=== PATIENT | female | born 1950 | race Caucasian/White ===

== ENCOUNTER 2020-11-05 16:00 | Outpatient (REF) | payer OTHER, SELFPAY | END 2020-11-05 16:01 | disposition home or self-care (01) | LOC: HO.SCI 16:00 | DX: Z13.89 Encounter for screening for other disorder (principal) ==

== ENCOUNTER 2020-11-12 10:30 | Outpatient (REF) | payer OTHER, SELFPAY ==
--- NOTE | 2020-11-12 | MR_ITS ---
EXAMINATION: MR CERVICAL SPINE WITHOUT CONTRAST CLINICAL INFORMATION: Frequent falls. COMPARISON: None TECHNIQUE: MRI of the cervical spine was obtained using routine sequences without contrast. FINDINGS: VERTEBRAL BODIES AND PARASPINAL SOFT TISSUES: There are anterior subluxations at the C2-C3, C3-C4, and C7-T1 levels. Mild leftward curvature of the mid cervical spine noted. Chronic degenerative endplate changes present at multiple levels, most significant at C4-C5. The paraspinal soft tissues are unremarkable. The imaged portions of the lungs are clear. CERVICOMEDULLARY JUNCTION AND VISUALIZED POSTERIOR FOSSA: The craniovertebral junction and visualized portions of the brain parenchyma demonstrate no acute abnormality. No cord signal changes or syrinx is seen. SPINAL LEVELS: C2-C3: Anterior subluxation with gecg-hn-rzikzufo facet arthropathy. No focal disc protrusion, central canal stenosis, or foraminal narrowing. C3-C4: Anterolisthesis and unroofing of the disc with mild endplate spurring. No central canal stenosis. Mild foraminal encroachment due to osseous spurring. Llxktjlc-wu-tfnkhs left-sided facet degeneration. C4-C5: Mild retrosubluxation and severe loss of disc height with a broad-based disc-osteophyte complex. No central canal stenosis. Mild right foraminal encroachment. C5-C6: Mild loss of disc height and mild uncovertebral joint spurring with moderate right foraminal encroachment. No central canal stenosis. C6-C7: Ppagldjm-tj-gbogpx loss of disc height with a mild disc bulge and uncovertebral joint spurring. No central canal stenosis. Kpibedkb-hl-juquui foraminal encroachment, more so on the left side. C7-T1: Anterior subluxation and unroofing of the disc with csurfdjo-bn-ectjzx facet arthropathy and significant left foraminal encroachment. MR/MR cervical spine wo con IMPRESSION: Limited study with motion artifacts. Moderate multilevel cervical spondylosis with subluxations as described and facet degeneration. No cord signal abnormality or significant central canal stenosis.
== END 2020-11-12 10:31 | disposition home or self-care (01) ==
LOC: HO.MRI 10:30
PROVIDERS: PCP Internal Medicine; Visit Provider Psychiatry & Neurology Neurology
DX: G95.9 Disease of spinal cord, unspecified (principal)
CPT/HCPCS: 72141

== ENCOUNTER 2024-02-10 12:19 | Outpatient (AMB) | payer OTHER, SELFPAY ==
--- NOTE | 2024-02-10 12:23 | A.OFFVIS_ITS ---
Intake Vital Signs 02/10/24 12:27 Height 5 ft 4 in Weight 191 lb 4 oz BMI 32.8 BP 116/82 Blood Pressure Location Rt brachial Position Sitting Respiration 17 Pulse 71 Pulse Source Pulse Oximeter Pulse Oximetry (%) 95 Oxygen Delivery Method Room Air Intake Visit Reasons: ENP-Tremor upper extremity-CONF Intake Note: Pt presents for new pt evaluation for tremors for 1 year, mainly the right hand. Instrument Lens Generator Required: No Allergies No Known Allergies Allergy (Verified 02/10/24 12:24) Medication List - Last Reconciled 02/10/24 by Lilibeth Escobedo MD amlodipine 5 mg PO DAILY aspirin 81 mg PO DAILY multivitamin 1 tab PO DAILY omeprazole 20 mg PO DAILY paroxetine HCl 20 mg PO DAILY propranolol 20 mg PO BID simvastatin 20 mg PO DAILY HPI HPI Comments History of Present Illness Details 74y/o right handed female comes for eval uation of tremors and balance issues. The tremors started about 1 year ago and it has worsened since then It is more on her right than left.The tremors are mostly at rest.No triggering factors. she is not sure if her fine motor coordination is affected. Her speech is softer. She denies drooling. she has trouble writing and her handwriting is smaller.No difficulty using her utensils, showering,dressing but slower. she has trouble turning in bed.Her walking is slower and when she tries to walk - she feels like her body moves faster than her legs. she reports occasional urinary incontinence.No constipation, no dizziness, no hallucinations.No double vision. Memory- mild difficulty with names SLeep- has snoring NO RBD. she takes daytime naps Mood-stable and is motivated. He had a fall in the bathroom and hit her head. she has occasional neck and back pain [facility] Medical History (Updated 02/10/24 @ 12:57 by Lilibeth Escobedo MD) Neck pain Gait disturbance Coarse tremors Anxiety Depression Diverticulosis Hyperlipidemia Osteopenia Prediabetes Arthritis HTN (hypertension) Social History Household Members: Spouse Housing: House Alcohol intake: current Comment: daily- Jacqueline Patient Tobacco Use Status: Never used Tobacco Use of substances other than those prescribed or required for medical reasons: No Physical Exam Vital Signs: Last Vital Signs Pulse 71 02/10/24 12:27 Resp 17 02/10/24 12:27 BP 116/82 02/10/24 12:27 Pulse Ox 95 02/10/24 12:27 Oxygen Delivery Method Room Air 02/10/24 12:27 BMI result Body Mass Index 32.8 Const General: cooperative, healthy appearing and comfortable Nutritional Appearance: average body habitus Orientation/consciousness: oriented to time Eyes Pupils: Equal, round and reactive pupils present Neuro Other: Mild asymmetry of palpebral fissure - right smaller than left SPeech- normal Right hand intremittent rest tremors FFM decreased noa. Mild cog wheel rigidty R>L Foot taps - decreased noa Gait slow- decreased arms wings noa R>L General: oriented to time, moves all extremities and no focal motor deficits Cranial nerves: Yes Equal, round and reactive pupils present, Yes Bilaterally intact EOM present, Yes Normal facial strength present, Yes Midline tongue present and Yes Ability to bilaterally elevate shoulders present Cognition (Neuro): normal cognition Motor exam (neuro): 5/5 motor strength present throughout Deep tendon reflexes (DTR's): Right triceps reflex intensity grade: 1+, Left triceps reflex intensity grade: 1+, Rt Biceps (C5, C6): 1+, Left biceps reflex intensity grade: 1+, Right brachioradialis reflex intensity grade: 1+, Left brachioradialis reflex intensity grade: 1+, Right patellar reflex intensity grade: 3+ and Left patellar reflex intensity grade: 1+ Coordination: beiohy-iu-zrpw test normal Assessment & Plan Assessment & Plan (1) Coarse tremors: Comment: ? subtle extrapyramidal symptoms Code(s): G25.2 - Other specified forms of tremor (2) Gait disturbance: Comment: ? hypereflexia Right knee ? parkinsonism , ? cervical spondylosis Code(s): R26.9 - Unspecified abnormalities of gait and mobility Plan MRI Brain to evaluate PT for gait training X ray c spine Consider Len scan Change propranolol LA 60 mg qd Orders: Orders PT Evaluation and Treatment Today R26.9 - Unspecified abnormalities of gait and mobility MR head/brain wo con Today G25.2 - Other specified forms of tremor, R26.9 - Unspecified abnormalities of gait and mobility XR cervical spine 2V Today M54.2 - Cervicalgia Coding Level of Care Code New Pt Level 4 (65747) Diagnoses Coarse tremors G25.2 Gait disturbance R26.9
[2024-02-10 12:27] VITALS: BP 116/82; PULSE 71; RESP 17; O2SAT 95; BMI 32.8
== END 2024-02-10 13:04 | disposition home or self-care (01) ==
PROVIDERS: PCP Internal Medicine; Visit Provider Psychiatry & Neurology Neurology
DX: G25.2 Other specified forms of tremor (principal); R26.9 Unspecified abnormalities of gait and mobility
CPT/HCPCS: 99204

== ENCOUNTER → 2024-02-10 12:19 | Outpatient (BNVA) | payer OTHER, SELFPAY | PROVIDERS: PCP Internal Medicine; Visit Provider Psychiatry & Neurology Neurology ==

== ENCOUNTER 2024-04-19 10:55 | Outpatient (AMB) | payer OTHER, SELFPAY ==
--- NOTE | 2024-04-19 11:14 | A.OFFVIS_ITS ---
Vital Signs 04/19/24 11:21 Height 5 ft 4 in Weight 193 lb 2 oz BMI 33.1 BP 112/84 Blood Pressure Location Lt brachial Position Sitting Pulse 73 Pulse Source Pulse Oximeter Pulse Oximetry (%) 98 Oxygen Delivery Method Room Air Intake Visit Reasons: 2 mo f/u - confirmed Intake Note: Patient presents for 2 months f/u. Hands are still shaking and right hand shakes more. Allergies No Known Allergies Allergy (Verified 04/19/24 11:19) HPI Comments Details: 74y/o right handed female comes for follow up of tremors and balance issues. she denies nay worsening MRI showed extensive white matter changes. History- The tremors started about 1 year ago and it has worsened since then It is more on her right than left.The tremors are mostly at rest.No triggering factors. she is not sure if her fine motor coordination is affected. Her speech is softer. She denies drooling. she has trouble writing and her handwriting is smaller.No difficulty using her utensils, showering,dressing but slower. she has trouble turning in bed.Her walking is slower and when she tries to walk - she feels like her body moves faster than her legs. she reports occasional urinary incontinence.No constipation, no dizziness, no hallucinations.No double vision. Memory- mild difficulty with names SLeep- has snoring NO RBD. she takes daytime naps Mood-stable and is motivated. He had a fall in the bathroom and hit her head. she has occasional neck and back pain [facility] Medical History (Updated 04/19/24 @ 11:45 by Lilibeth Escobedo MD) Neck pain Gait disturbance Coarse tremors Anxiety Depression Diverticulosis Hyperlipidemia Osteopenia Prediabetes Arthritis HTN (hypertension) Family History (Updated 04/19/24 @ 11:21 by Chloe Ledesma CMA) Father FH: heart attack Social History Household Members: Spouse Housing: House Alcohol intake: current Comment: daily- Jacqueline Patient Tobacco Use Status: Never used Tobacco Physical Exam Vital Signs: Last Vital Signs Pulse 73 04/19/24 11:21 BP 112/84 04/19/24 11:21 Pulse Ox 98 04/19/24 11:21 Oxygen Delivery Method Room Air 04/19/24 11:21 BMI result Body Mass Index 33.1 Const General: cooperative, healthy appearing and comfortable Nutritional Appearance: average body habitus Orientation/consciousness: oriented to time Eyes Pupils: Equal, round and reactive pupils present Neuro Other: Mild asymmetry of palpebral fissure - right smaller than left SPeech- normal Right hand intremittent rest tremors FFM decreased noa. Mild cog wheel rigidty R>L Foot taps - decreased noa Gait slow- decreased arms wings noa R>L General: oriented to time, moves all extremities and no focal motor deficits Cranial nerves: Yes Equal, round and reactive pupils present, Yes Bilaterally intact EOM present, Yes Normal facial strength present, Yes Midline tongue present and Yes Ability to bilaterally elevate shoulders present Cognition (Neuro): normal cognition Motor exam (neuro): 5/5 motor strength present throughout Deep tendon reflexes (DTR's): Right triceps reflex intensity grade: 1+, Left triceps reflex intensity grade: 1+, Rt Biceps (C5, C6): 1+, Left biceps reflex intensity grade: 1+, Right brachioradialis reflex intensity grade: 1+, Left brachioradialis reflex intensity grade: 1+, Right patellar reflex intensity grade: 3+ and Left patellar reflex intensity grade: 1+ Results Reviewed Results Reviewed: MRI Brain 2023 moderate to severe white matter disease Assessment & Plan Assessment & Plan (1) Coarse tremors: Comment: ? subtle extrapyramidal symptoms right ue rest tremors Code(s): G25.2 - Other specified forms of tremor Category: Medical (2) Gait disturbance: Comment: ? hypereflexia Right knee ? parkinsonism , ? cervical spondylosis Code(s): R26.9 - Unspecified abnormalities of gait and mobility Category: Medical Plan PT for gait training- she has an appointment X ray c spine was not done Len scan Change propranolol LA 60 mg qd Orders: Orders DaTscan Today G25.2 - Other specified forms of tremor, R26.9 - Unspecified abnormalities of gait and mobility Coding Level of Care Code Est Pt Level 4 (35610) Diagnoses Coarse tremors G25.2 Gait disturbance R26.9
[2024-04-19 11:21] VITALS: BP 112/84; PULSE 73; O2SAT 98; BMI 33.1
== END 2024-04-19 11:51 | disposition home or self-care (01) ==
PROVIDERS: PCP Internal Medicine; Visit Provider Psychiatry & Neurology Neurology
DX: G25.2 Other specified forms of tremor (principal); R26.9 Unspecified abnormalities of gait and mobility
CPT/HCPCS: 99214

== ENCOUNTER → 2024-04-19 10:55 | Outpatient (BNVA) | payer OTHER, SELFPAY | PROVIDERS: PCP Internal Medicine; Visit Provider Psychiatry & Neurology Neurology ==

== ENCOUNTER 2024-09-07 13:46 | Outpatient (AMB) | payer OTHER, SELFPAY ==
[2024-09-07 13:49] VITALS: BP 128/88; BMI 33.0
--- NOTE | 2024-09-07 13:49 | A.OFFVIS_ITS ---
Vital Signs 09/07/24 13:49 Height 5 ft 4 in Weight 192 lb BMI 33.0 BP 128/88 Blood Pressure Location Rt brachial Position Sitting Intake Visit Reasons: 2 mo f/u Intake Note: Patient here for follow up. Allergies No Known Allergies Allergy (Verified 09/07/24 13:54) Medication List - Last Reconciled 09/07/24 by Lilibeth Escobedo MD amlodipine 5 mg PO DAILY aspirin 81 mg PO DAILY cholecalciferol (vitamin D3) 75 mcg PO DAILY multivitamin 1 tab PO DAILY omeprazole 20 mg PO DAILY paroxetine HCl 20 mg PO DAILY propranolol 20 mg PO BID simvastatin 20 mg PO DAILY HPI Comments Details: 74y/o right handed female comes for follow up of tremors and balance issues. Her Len scan showed noa decreased uptake c/w parkinsons. she had 1 fall - tripped.speech - voice is softer. Sleep- occasional sleep talking Mood- anxiety Motivated. Her handwriting is poor. she is able to shower and dress. she has some trouble with utensils she moise strouble getting off the couch usually because of pain Gait is slower and off balance C spine X ray shows moderate deg changes.she has occasional neck and back pain . she has urinary incontinence. MRI showed extensive white matter changes. History- The tremors started about 1 year ago and it has worsened since then It is more on her right than left.The tremors are mostly at rest.No triggering factors. she is not sure if her fine motor coordination is affected. Her speech is softer. She denies drooling. she has trouble writing and her handwriting is smaller.No difficulty using her utensils, showering,dressing but slower. she has trouble turning in bed.Her walking is slower and when she tries to walk - she feels like her body moves faster than her legs. she reports occasional urinary incontinence.No constipation, no dizziness, no hallucinations.No double vision. Memory- mild difficulty with names SLeep- has snoring NO RBD. she takes daytime naps Mood-stable and is motivated. He had a fall in the bathroom and hit her head. she has occasional neck and back pain [facility] Medical History (Updated 09/07/24 @ 14:21 by Lilibeth Escobedo MD) Parkinson's disease Cervical spondylitic cord compression Neck pain Gait disturbance Coarse tremors Anxiety Depression Diverticulosis Hyperlipidemia Osteopenia Prediabetes Arthritis HTN (hypertension) Family History Father FH: heart attack Social History Household Members: Spouse Housing: House Alcohol intake: current Comment: daily- Jacqueline Patient Tobacco Use Status: Never used Tobacco Physical Exam Vital Signs: Last Vital Signs BP 128/88 09/07/24 13:49 BMI result Body Mass Index 33.0 Const General: cooperative, healthy appearing and comfortable Nutritional Appearance: average body habitus Orientation/consciousness: oriented to time Eyes Pupils: Equal, round and reactive pupils present Neuro Other: Mild asymmetry of palpebral fissure - right smaller than left SPeech- normal Right hand intremittent rest tremors FFM decreased noa. Mild cog wheel rigidty R>L Foot taps - decreased noa Gait slow- decreased arms wings noa R>L General: oriented to time, moves all extremities and no focal motor deficits Cranial nerves: Yes Equal, round and reactive pupils present, Yes Bilaterally intact EOM present, Yes Normal facial strength present, Yes Midline tongue present and Yes Ability to bilaterally elevate shoulders present Cognition (Neuro): normal cognition Motor exam (neuro): 5/5 motor strength present throughout Deep tendon reflexes (DTR's): Right triceps reflex intensity grade: 1+, Left triceps reflex intensity grade: 1+, Rt Biceps (C5, C6): 1+, Left biceps reflex intensity grade: 1+, Right brachioradialis reflex intensity grade: 1+, Left brachioradialis reflex intensity grade: 1+, Right patellar reflex intensity grade: 3+ and Left patellar reflex intensity grade: 1+ Assessment & Plan Assessment & Plan (1) Parkinson's disease: Code(s): G20.A1 - Parkinson's disease without dyskinesia, without mention of fluctuations Category: Medical Qualifiers: Dyskinesia presence: without dyskinesia Fluctuating manifestations: without fluctuating manifestations Qualified Code(s): G20.A1 - Parkinson's disease without dyskinesia, without mention of fluctuations (2) Gait disturbance: Comment: ? hypereflexia Right knee ? parkinsonism , ? cervical spondylosis Code(s): R26.9 - Unspecified abnormalities of gait and mobility Category: Medical Plan I will trial her on carbidopa/levodopa 25/100 1/2 tab tid for 2 weeks then 1 tab tid Discussed side effects and interactions with protein Len scan results discussed MRI c spine for DJD ? stenosis Medications: New carbidopa-levodopa 25-100 mg (Sinemet) 1/2 tab tid for 2 weeks then increase to 1 tab tid 1 tab PO TID 90 tabs 6RF Coding Level of Care Code Est Pt Level 4 (81926) Complex EM visit Add On G2211 Diagnoses Parkinson's disease without dyskinesia or fluctuating manifestations G20.A1 Dyskinesia presence: without dyskinesia Fluctuating manifestations: without fluctuating manifestations Gait disturbance R26.9
== END 2024-09-07 14:31 | disposition home or self-care (01) ==
PROVIDERS: PCP Internal Medicine; Visit Provider Psychiatry & Neurology Neurology
DX: G20.A1 Parkinson's disease without dyskinesia, without mention of fluctuations (principal); R26.9 Unspecified abnormalities of gait and mobility
CPT/HCPCS: 99214

== ENCOUNTER → 2024-09-07 13:46 | Outpatient (BNVA) | payer OTHER, SELFPAY | PROVIDERS: PCP Internal Medicine; Visit Provider Psychiatry & Neurology Neurology | DX: G25.2 Other specified forms of tremor (principal); R26.9 Unspecified abnormalities of gait and mobility ==

== ENCOUNTER 2024-12-04 11:51 | Outpatient (AMB) | payer OTHER, SELFPAY ==
--- NOTE | 2024-12-04 11:52 | MHC.OFFVIS ---
Vital Signs 12/04/24 11:53 Height 5 ft 4 in Weight 192 lb BMI 33.0 BP 118/80 Blood Pressure Location Rt brachial Position Sitting Pulse 58 Pulse Source Pulse Oximeter Pulse Oximetry (%) 96 Oxygen Delivery Method Room Air Intake Visit Reasons: 2 mo f/u Intake Note: Patient presents for 2 month follow up Allergies No Known Allergies Allergy (Verified 12/04/24 11:53) Medication List - Last Reconciled 12/04/24 by Lilibeth Escobedo MD amlodipine 5 mg PO DAILY aspirin 81 mg PO DAILY carbidopa-levodopa 25-100 mg (Sinemet) 1 tab PO TID cholecalciferol (vitamin D3) 75 mcg PO DAILY metoprolol succinate ER 50 mg PO DAILY multivitamin 1 tab PO DAILY omeprazole 20 mg PO DAILY paroxetine HCl 20 mg PO DAILY simvastatin 20 mg PO DAILY HPI Comments Details: 74y/o right handed female comes for follow up of Parkinsons disease .. Her Len scan showed noa decreased uptake c/w parkinsons. Her tremors are better with carbidopa/levodopa.Voice is better No falls since last visit. Sleep- occasional sleep talking Mood- stable Motivated. Her handwriting is poor. she is able to shower and dress use utensils she has trouble getting off the couch usually because of pain Gait is slower and off balance C spine X ray shows moderate deg changes.she has occasional neck and back pain . she has urinary incontinence. MRI showed extensive white matter changes. she also has back pain History- The tremors started about 1 year ago and it has worsened since then It is more on her right than left.The tremors are mostly at rest.No triggering factors. she is not sure if her fine motor coordination is affected. Her speech is softer. She denies drooling. she has trouble writing and her handwriting is smaller.No difficulty using her utensils, showering,dressing but slower. she has trouble turning in bed.Her walking is slower and when she tries to walk - she feels like her body moves faster than her legs. she reports occasional urinary incontinence.No constipation, no dizziness, no hallucinations.No double vision. Memory- mild difficulty with names SLeep- has snoring NO RBD. she takes daytime naps Mood-stable and is motivated. He had a fall in the bathroom and hit her head. she has occasional neck and back pain COUNT INCLUDES [facility] Medical History Parkinson's disease Cervical spondylitic cord compression Neck pain Gait disturbance Coarse tremors Anxiety Depression Diverticulosis Hyperlipidemia Osteopenia Prediabetes Arthritis HTN (hypertension) Family History Father FH: heart attack Social History Household Members: Spouse Housing: House Alcohol intake: current Comment: daily- Jacqueline Patient Tobacco Use Status: Never used Tobacco Physical Exam Vital Signs: Last Vital Signs Pulse 58 12/04/24 11:53 BP 118/80 12/04/24 11:53 Pulse Ox 96 12/04/24 11:53 Oxygen Delivery Method Room Air 12/04/24 11:53 BMI result Body Mass Index 33.0 Const General: cooperative, healthy appearing and comfortable Nutritional Appearance: average body habitus Orientation/consciousness: oriented to time Eyes Pupils: Equal, round and reactive pupils present Neuro Other: Mild asymmetry of palpebral fissure - right smaller than left SPeech- normal Right hand intremittent rest tremors FFM decreased noa. Mild cog wheel rigidty R>L Foot taps - decreased noa Gait slow- decreased arms wings noa R>L General: oriented to time, moves all extremities and no focal motor deficits Cranial nerves: Yes Equal, round and reactive pupils present, Yes Bilaterally intact EOM present, Yes Normal facial strength present, Yes Midline tongue present and Yes Ability to bilaterally elevate shoulders present Motor exam (neuro): 5/5 motor strength present throughout Assessment & Plan Assessment & Plan (1) Parkinson's disease: Code(s): G20.A1 - Parkinson's disease without dyskinesia, without mention of fluctuations Category: Medical Qualifiers: Dyskinesia presence: without dyskinesia Fluctuating manifestations: without fluctuating manifestations Qualified Code(s): G20.A1 - Parkinson's disease without dyskinesia, without mention of fluctuations (2) Gait disturbance: Comment: ? hypereflexia Right knee ? parkinsonism , ? cervical spondylosis Code(s): R26.9 - Unspecified abnormalities of gait and mobility Category: Medical Plan Continue carbidopa/levodopa 1 tab tid Discussed side effects and interactions with protein Len scan results discussed MRI c spine for DJD ? stenosis Medications: Changed From carbidopa-levodopa 25-100 mg (Sinemet) 1/2 tab tid for 2 weeks then increase to 1 tab tid 1 tab PO TID 90 tabs 6RF To carbidopa-levodopa 25-100 mg (Sinemet) 1 tab PO TID 90 tabs 6RF Coding Level of Care Code Est Pt Level 4 (55748) Complex EM visit Add On G2211 Diagnoses Parkinson's disease without dyskinesia or fluctuating manifestations G20.A1 Dyskinesia presence: without dyskinesia Fluctuating manifestations: without fluctuating manifestations Gait disturbance R26.9
[2024-12-04 11:53] VITALS: BP 118/80; PULSE 58; O2SAT 96; BMI 33.0
== END 2024-12-04 12:24 | disposition home or self-care (01) ==
PROVIDERS: PCP Internal Medicine; Visit Provider Psychiatry & Neurology Neurology
DX: G20.A1 Parkinson's disease without dyskinesia, without mention of fluctuations (principal); R26.9 Unspecified abnormalities of gait and mobility
CPT/HCPCS: 99214

== ENCOUNTER → 2024-12-04 11:51 | Outpatient (BNVA) | payer OTHER, SELFPAY | PROVIDERS: PCP Internal Medicine; Visit Provider Psychiatry & Neurology Neurology | DX: G25.2 Other specified forms of tremor (principal); R26.9 Unspecified abnormalities of gait and mobility; G20.A1 Parkinson's disease without dyskinesia, without mention of fluctuations ==

== ENCOUNTER 2025-05-30 10:30 | Outpatient (AMB) | payer OTHER, SELFPAY ==
--- NOTE | 2025-05-30 10:34 | MHC.OFFVIS ---
Vital Signs 05/30/25 10:37 Height 5 ft 4 in Weight 186 lb BMI 31.9 BP 142/88 H Blood Pressure Location Rt brachial Position Sitting Intake Visit Reasons: 6m follow up Intake Note: Patient presents for follow up MRI C spine done Allergies No Known Allergies Allergy (Verified 05/30/25 10:42) Medication List - Last Reconciled 05/30/25 by Lilibeth Escobedo MD amlodipine 5 mg PO DAILY carbidopa-levodopa 25-100 mg (Sinemet) 1 tab PO TID cholecalciferol (vitamin D3) 75 mcg PO DAILY gabapentin 100 mg PO TID metoprolol succinate ER 50 mg PO DAILY multivitamin 1 tab PO DAILY omeprazole 20 mg PO DAILY paroxetine HCl 20 mg PO DAILY simvastatin 20 mg PO DAILY HPI Comments Details: 74y/o right handed female comes for follow up of Parkinsons disease .. Her Len scan showed noa decreased uptake c/w parkinsons. She Her tremors are better with carbidopa/levodopa.Voice is better No falls since last visit. Sleep- occasional sleep talking Mood- stable Motivated. Her handwriting is poor. she is able to shower and dress use utensils she has trouble getting off the couch usually because of pain Gait is slower and off balance C spine X ray shows moderate deg changes.she has occasional neck pain . she has urinary incontinence. MRI showed extensive white matter changes. she also has back pain History- The tremors started about 1 year ago and it has worsened since then It is more on her right than left.The tremors are mostly at rest.No triggering factors. she is not sure if her fine motor coordination is affected. Her speech is softer. She denies drooling. she has trouble writing and her handwriting is smaller.No difficulty using her utensils, showering,dressing but slower. she has trouble turning in bed.Her walking is slower and when she tries to walk - she feels like her body moves faster than her legs. she reports occasional urinary incontinence.No constipation, no dizziness, no hallucinations.No double vision. Memory- mild difficulty with names SLeep- has snoring NO RBD. she takes daytime naps Mood-stable and is motivated. He had a fall in the bathroom and hit her head. she has occasional neck and back pain [facility] Medical History (Updated 05/30/25 @ 10:57 by Lilibeth Escobedo MD) Back pain Parkinson's disease Cervical spondylitic cord compression Neck pain Gait disturbance Coarse tremors Anxiety Depression Diverticulosis Hyperlipidemia Osteopenia Prediabetes Arthritis HTN (hypertension) Family History Father FH: heart attack Social History Household Members: Spouse Housing: House Alcohol intake: current Comment: daily- Jacqueline Patient Tobacco Use Status: Never used Tobacco Physical Exam Vital Signs: Last Vital Signs BP 142/88 H 05/30/25 10:37 BMI result Body Mass Index 31.9 Const General: cooperative, healthy appearing and comfortable Nutritional Appearance: average body habitus Orientation/consciousness: oriented to time Eyes Pupils: Equal, round and reactive pupils present Neuro Other: Mild asymmetry of palpebral fissure - right smaller than left SPeech- normal Right hand intremittent rest tremors FFM decreased noa. Mild cog wheel rigidty R>L Foot taps - decreased noa Gait slow- decreased arms wings noa R>L General: oriented to time, moves all extremities and no focal motor deficits Cranial nerves: Yes Equal, round and reactive pupils present, Yes Bilaterally intact EOM present, Yes Normal facial strength present, Yes Midline tongue present and Yes Ability to bilaterally elevate shoulders present Motor exam (neuro): 5/5 motor strength present throughout Assessment & Plan Assessment & Plan (1) Parkinson's disease: Code(s): G20.A1 - Parkinson's disease without dyskinesia, without mention of fluctuations Category: Medical Qualifiers: Dyskinesia presence: without dyskinesia Fluctuating manifestations: without fluctuating manifestations Qualified Code(s): G20.A1 - Parkinson's disease without dyskinesia, without mention of fluctuations (2) Gait disturbance: Comment: cervical spondylosis , parkinsonism Code(s): R26.9 - Unspecified abnormalities of gait and mobility Category: Medical (3) Back pain: Code(s): M54.9 - Dorsalgia, unspecified Category: Medical Qualifiers: Back pain location: low back pain Chronicity: chronic Back pain laterality: bilateral Plan Continue carbidopa/levodopa 25/100 1 tab tid Discussed side effects and interactions with protein Len scan results discussed PT for back pain Orders: Orders PT Evaluation and Treatment Today G20.A1 - Parkinson's disease without dyskinesia, without mention of fluctuations, M54.9 - Dorsalgia, unspecified Coding Level of Care Code Est Pt Level 4 (41236) Complex EM visit Add On G2211 Diagnoses Parkinson's disease without dyskinesia or fluctuating manifestations G20.A1 Dyskinesia presence: without dyskinesia Fluctuating manifestations: without fluctuating manifestations Gait disturbance R26.9 Back pain M54.9 Back pain location: low back pain Chronicity: chronic Back pain laterality: bilateral
[2025-05-30 10:37] VITALS: BP 142/88; BMI 31.9
--- OUTSIDE RECORDS SUMMARY | 2025-05-30 11:26 | XMS_ITS | Clinical Summary ---
Author Organization [facility] [address] [place] [address] [place] [phone] Phone Care Team Providers Care Cryptologic Technician Technical Name Role Phone Cullen Gibson MD Primary Care Provider [phone] Allergies No known active allergies Medications multivitamin complete formula with D3000 (COMPLETE D3000) 3,000-1,000 unit-mcg chewable tablet Take by mouth. Active cholecalciferol (VITAMIN D-3) 50 mcg (2,000 unit) tablet Take 1 tablet (2,000 Units total) by mouth 1 (one) time each day. 4 Active aspirin 81 mg EC tablet Take 1 Tablet by mouth daily for 180 days. 2 Active red beet root-sour ash ext 250-0.5 mg tablet,chewable Take by mouth. Active simvastatin (ZOCOR) 20 mg tablet TAKE 1 TABLET BY MOUTH IN THE MORNING 100 tablet 2 4 Active PARoxetine (PAXIL) 20 mg tablet TAKE 1 TABLET BY MOUTH DAILY 90 tablet 3 4 Active metoprolol tartrate (LOPRESSOR) 50 mg tablet TAKE 1 TABLET BY MOUTH DAILY 100 tablet 2 4 Active lactulose (CHRONULAC) solution 30 mL daily nightly as needed constipation 1000 mL 11 5 Active amLODIPine (NORVASC) 5 mg tablet TAKE 1 TABLET BY MOUTH DAILY 100 tablet 2 5 Active omeprazole (PriLOSEC) [address] capsule TAKE 1 CAPSULE BY MOUTH DAILY 100 capsule 2 5 Active gabapentin (NEURONTIN) 100 mg capsuleIndicati ons:Chronic bilateral low back pain with right-sided sciatica Take 1 capsule (100 mg total) by mouth 3 (three) times a day if needed (back pain). 60 each 5 5 09/19/20 25 Active Active Problems Problem Noted Date Diagnosed Date Shortness of breath on exertion 08/24/2022 Overview (08/22/2024): Last Assessment & Plan: Her increased dyspnea is likely secondary to her reactive airway disease. She is interested in seeing a rope tier but cannot make it at [place]. I will refer her to a rope tier through [facility]. If her reactive airway disease is treated and she remains dyspneic would consider pharmacological stress testing given she was not able to reach target therapy. I do not think this is warranted at this time as her symptoms do not appear to be ischemic mediated. She is in agreement. PANG (dyspnea on exertion) 08/24/2022 HTN (hypertension) 04/21/2019 Overview (08/22/2024): Last Assessment & Plan: 122/84 in office today, well-controlled. Continue metoprolol and amlodipine. Assessment & Plan (12/19/2024 11:57 AM EST): Blood pressure is under control on metoprolol and amlodipine. Orders: CBC and differential; Future Comprehensive metabolic panel; Future Lipid panel with reflex to direct LDL; Future Thyroid stimulating hormone; Future Anxiety 04/21/2019 Depression 04/21/2019 Assessment & Plan (12/19/2024 11:57 AM EST): Stable on Paxil. Orders: CBC and differential; Future Comprehensive metabolic panel; Future Lipid panel with reflex to direct LDL; Future Thyroid stimulating hormone; Future Diverticulosis 04/21/2019 Hyperlipidemia 04/21/2019 Overview (08/22/2024): Last Assessment & Plan: Followed by PCP. Continue statin therapy. Assessment & Plan (12/19/2024 11:57 AM EST): Appears stable on simvastatin. Orders: CBC and differential; Future Comprehensive metabolic panel; Future Lipid panel with reflex to direct LDL; Future Thyroid stimulating hormone; Future Lumbar radiculopathy 04/21/2019 Overview (08/22/2024): Lumbar disc displacement Assessment & Plan (12/19/2024 11:57 AM EST): Does not want to see a broadcast director operations. Osteoarthritis 04/21/2019 Osteopenia 04/21/2019 Prediabetes 04/21/2019 Encounters Date Type Department Care Team Description 04/10/2025 Telephone [facility] - [facility] [address] [facility] [address] [place] [phone] Erica Scales NP Recall Appointment 03/26/2025 2:40 PM EDT Consult Gastroenterology - [place] [address] [place] [phone] Janene Ingram NP Hepatic lesion (Primary Dx); Gastroesophageal reflux disease without esophagitis; Benign neoplasm of liver 03/23/2025 11:00 AM EDT Office Visit Internal Medicine [address] [place] [phone] Lissa Cedeño NP Chronic bilateral low back pain with right-sided sciatica (Primary Dx); Lumbar radiculopathy; Pure hypercholesterolemia; Primary hypertension; Depression, unspecified depression type; Parkinson's disease, unspecified whether dyskinesia present, unspecified whether manifestations fluctuate (CMS/HCC V24, CMS/HCC V28) 03/08/2025 9:11 AM EDT - 03/08/2025 11:59 PM EDT Hospital Encounter Radiology Department - [address] [phone] Renal cyst Discharge Disposition: Home or Self Care from Last 3 Months Immunizations Name Administration Dates Next Due Influenza trivalent, 0.5mL ( Fluzone High-dose) 65yo and older 08/21/2022,08/22/2020 Tdap Tetanus diptheria acell ular pertussis (Boostrix; Adacel) 7yo and older 08/09/2011 Zoster Live 09/15/2012 Surgical History Surgery Date Site/Laterality Comments COLONOSCOPY PROCEDURE: HISTORICAL COLONOSCOPY; COMMENT: multiple Medical History Medical History Date Comments HTN (hypertension) 04/21/2019 DX:HTN (hyper tension) Anxiety 04/21/2019 DX:Anxiety Depression 04/21/2019 DX:Depression Diverticulosis 04/21/2019 DX:Diverticulosi s Hyperlipidemia 04/21/2019 DX:Hyperlipidemi a Lumbar radiculopathy 04/21/2019 DX:Lumbar r adiculopathy; COMMENT: Lumbar disc displacement Osteoarthritis 04/21/2019 DX:Osteoarthriti s Osteopenia 04/21/2019 DX:Osteopenia Prediabetes 04/21/2019 DX:Prediabetes Social History Tobacco Use Types Packs/Day Years Used Date Smoking Tobacco: Never Smokeless Tobacco: Never Tobacco Cessation:Counseling Given: Not Answered Alcohol Use Standard Drinks/Week Comments Not Currently 0 (1 standard drink = 0.6 oz pur e alcohol) Comments Unknown Sex and Gender Information Value Date Recorded Sex Assigned at Not on file Legal Sex Female 5:28 AM EST Gender Identity Not on file Sexual Orientation Not on file Obstetrics History Last Filed Vital Signs Vital Sign Reading Time Taken Comments Blood Pressure 122/75 03/26/2025 2:34 PM EDT Pulse 68 03/26/2025 2:34 PM EDT Temperature 36.3 C (97.3 F) 03/23/2025 11:01 AM EDT Respiratory Rate - - Oxygen Saturation 98% 03/26/2025 2:34 PM EDT Inhaled Oxygen Concentration - - Weight 83.5 kg (184 lb) 03/26/2025 2:34 PM EDT Height 162.6 cm (5' 4 ) 03/26/2025 2:34 PM EDT Body Mass Index 31.58 03/26/2025 2:34 PM EDT Plan of Treatment Upcoming Encounters Date Type Department Care Team (Late st Contact Info) Description 06/21/2025 11:00 AM EDT Office Visit Internal Medicine - [place] [address] [facility] [address] [place] [address] Cullen Gibson MD 175 [facility] 200 [place] [address] 02/26/2026 11:00 AM EDT Office Visit Endocrinology - [place] [address] [place], [place] [phone] Snow Blanton MD [address] [place] [address] Health Maintenance Due Date Last Done Comments Pneumococcal Vaccine: 50+ Years (1 of 2 - PCV) 1969 Zoster Vaccines (2 of 3) 11/10/2012 09/15/2012 DTaP,Tdap,and Td Vaccines (2 - Td or Tdap) 08/09/2021 08/09/2011 Hepatitis C Screening 10/31/2022 Social Influencers of Health Screening 10/31/2022 Cervical Cancer Screening: Pap Smear 12/18/2022 12/18/2021 RSV Immunization Adult Patients (1 - 1-dose 75+ series) 2025 COVID-19 Vaccine ( - season) 2025 09/12/2024, 12/02/2021, 02/15/2021 Influenza Vaccine (#1) 2025 , 11/05/2023, 08/21/2022, Additional history exists Depression Screening 12/19/2025 12/19/2024 Falls Risk Assessment 12/19/2025 12/19/2024 Hypertension/CHF/CAD Annual BMP Blood Test 12/19/2025 12/19/2024, 06/28/2024, 06/28/2024 Medicare Annual Wellness Visit 12/19/2025 12/19/2024 Cholesterol Screening (Lipid Panel) 12/19/2029 12/19/2024, 06/28/2024, 06/28/2024 Colorectal Cancer Screening: Colonoscopy 06/13/2034 06/13/2024 Osteoporosis Screening (Bone Density Screening) 06/28/2034 06/28/2024 HIB Vaccines Aged Out No longer eligi ble based on patient's age to complete this topic HPV Vaccines Aged Out No longer eligi ble based on patient's age to complete this topic Hepatitis A Vaccines Aged Out No long er eligible based on patient's age to complete this topic Hepatitis B Vaccines Aged Out No long er eligible based on patient's age to complete this topic IPV Vaccines Aged Out No longer eligi ble based on patient's age to complete this topic MMR Vaccines Aged Out No longer eligi ble based on patient's age to complete this topic Meningococcal ACWY Vaccine Aged Out N o longer eligible based on patient's age to complete this topic Meningococcal B Vaccine Aged Out No l onger eligible based on patient's age to complete this topic RSV Immunization Patients Under 20 months Aged Out No longer eligible based on patient's age to complete this topic Varicella Vaccines Aged Out No longer eligible based on patient's age to complete this topic Procedures Procedure Name Priority Date/Time Associated Diagnosis Comments MR ABDOMEN WO AND W CONTRAST Routine 03/08/2025 10:27 AM EDT Renal cyst COMPREHENSIVE METABOLIC PANEL Routine 12/19/2024 11:48 AM EST Pure hypercholesterolemi a Primary hypertension Depression, unspecified depression type LIPID PANEL WITH REFLEX TO DIRECT LDL Routine 12/19/2024 11:48 AM EST Pure hypercholesterolemi a Primary hypertension Depression, unspecified depression type [facility] DEXA AXIAL SKELETON Routine 06/28/2024 11:28 AM EDT Other specified disorders of bone density and structure, other site COLONOSCOPY Routine 06/13/2024 PAP SMEAR Routine 12/18/2021 from Last 3 Months or Most Recently Relevant to Health Maintenance Results * MR Abdomen wo and w Contrast (03/08/2025 10:27 AM EDT) Anatomical Region Laterality Modality Body Magnetic Resonan ce 03/08/2025 3:01 PM EDT Impressions 03/08/2025 7:15 PM EDT 6.6 x 6.6 x 5.6 cm lesion right lobe of the liver. This demonstrates no enhancement. 9.0 x 5.6 x 8.9 cm multiseptated complex cystic mass of the left kidney demonstrates no enhancement. -------- FINAL REPORT -------- Dictated By: Grecia Juárez Dictated Date: 03/08/2025 15:01 ET Assigned Physician: Grecia Juárez Reviewed and Electronically Signed By: Grecia Juárez Signed Date: 03/08/2025 19:15 ET Workstation ID: [id number] Transcribed By: Self Edit Transcribed Date: 03/08/2025 15:30 ET Narrative 03/08/2025 7:15 PM EDT MRI ABDOMEN WITH/WITHOUT CONTRAST HISTORY: Complex septated left renal cyst. COMPARISON: Retroperitoneal ultrasound 12/06/2024 and Abdominal aortic ultrasound 12/06/2019, which described multiple lesions of the liver. TECHNIQUE: Exam performed on a 1.5 Benita high-field MRI scanner. The following sequences were obtained after the IV administration of 17 mL Dotarem: Axial T1 in and out of phase and T2, coronal T2, radial thick slab MRCP, coronal oblique thin section 3-D MRCP sequences. Reformatted axial and cholangiographic MIP images are available for review. FINDINGS: Liver: There is a 6.5 x 6.5 x 5.6 cm intermediate intensity lesion in the dome of the liver, and this demonstrates no enhancement. There are multiple rounded T2 hyperintense lesions scattered throughout the liver, consistent with cysts.. Gallbladder/biliary tree: No filling defects within the gallbladder to indicate gallstones. No gallbladder wall thickening or pericholecystic fluid. No biliary ductal dilatation. Spleen: No abnormality detected. Pancreas: There are multiple tiny rounded T2 hyperintensities in the tail of the pancreas. No pancreatic ductal dilatation or variant anatomy. No abnormal enhancement. Adrenal glands: No masses. Kidneys/ureters: No hydronephrosis. 2.0 x 1.9 x 1.4 cm cyst lower pole right kidney. Subcentimeter T2 hyperintense lesions of the right kidney, statistically representing cysts. There is a 9.0 x 5.6 x 8.9 cm multi septated complex cystic mass of the mid to upper pole of the left kidney, and this lesion contains multiple areas of isointense signal consistent with solid elements. There is no abnormal enhancement in either kidney. Vasculature: Unremarkable. Peritoneum: No significant ascites or organized collections. Lymph nodes: No lymphadenopathy detected. Body wall: No suspicious mass. Bowel: Unremarkable. Lower thorax: No infiltrate in the basal lungs. No pleural or pericardial effusions. Bones: There is curvature and degenerative change of the spine. Procedure Note Grecia Juárez MD - 03/08/2025 MRI ABDOMEN WITH/WITHOUT CONTRAST HISTORY: Complex septated left renal cyst. COMPARISON: Retroperitoneal ultrasound 12/06/2024 and Abdominal aorticultrasound 12/06/2019, which described multiple lesions of the liver. TECHNIQUE: Exam performed on a 1.5 Benita high-field MRI scanner. Thefollowing sequences were obtained after the IV administration of 17 mLDotarem: Axial T1 in and out of phase and T2, coronal T2, radial thickslab MRCP, coronal oblique thin section 3-D MRCP sequences. Reformattedaxial and cholangiographic MIP images are available for review. FINDINGS: Liver: There is a 6.5 x 6.5 x 5.6 cm intermediate intensity lesion in thedome of the liver, and this demonstrates no enhancement. There aremultiple rounded T2 hyperintense lesions scattered throughout the liver,consistent with cysts.. Gallbladder/biliary tree: No filling defects within the gallbladder toindicate gallstones. No gallbladder wall thickening or pericholecysticfluid. No biliary ductal dilatation. Spleen: No abnormality detected. Pancreas: There are multiple tiny rounded T2 hyperintensities in the tailof the pancreas. No pancreatic ductal dilatation or variant anatomy. Noabnormal enhancement. Adrenal glands: No masses. Kidneys/ureters: No hydronephrosis. 2.0 x 1.9 x 1.4 cm cyst lower poleright kidney. Subcentimeter T2 hyperintense lesions of the right kidney,statistically representing cysts. There is a 9.0 x 5.6 x 8.9 cm multiseptated complex cystic mass of the mid to upper pole of the left kidney,and this lesion contains multiple areas of isointense signal consistentwith solid elements. There is no abnormal enhancement in either kidney. Vasculature: Unremarkable. Peritoneum: No significant ascites or organized collections. Lymph nodes: No lymphadenopathy detected. Body wall: No suspicious mass. Bowel: Unremarkable. Lower thorax: No infiltrate in the basal lungs. No pleural or pericardialeffusions. Bones: There is curvature and degenerative change of the spine. IMPRESSION: 6.6 x 6.6 x 5.6 cm lesion right lobe of the liver. This demonstrates noenhancement. 9.0 x 5.6 x 8.9 cm multiseptated complex cystic mass of the left kidneydemonstrates no enhancement. -------- FINAL REPORT -------- Dictated By: Grecia Juárez Dictated Date: 03/08/2025 15:01 ET Assigned Physician: Grecia Juárez Reviewed and Electronically Signed By: Grecia Juárez Signed Date: 03/08/2025 19:15 ET Workstation ID: [id number] Transcribed By: Self Edit Transcribed Date: 03/08/2025 15:30 ET Snow Blanton MD IMG MRI PROCEDURES Final Result * Lipid panel with reflex to direct LDL (12/19/2024 11:48 AM EST) Cholesterol 161 0 - 200 mg/dL LAB CHEMISTRY METHOD 12/19/2024 3:03 PM [facility] Triglycerides 138 0 - 150 mg/dL LAB CHEMISTRY METHOD 12/19/2024 3:03 PM [facility] HDL 69 >=40 mg/dL LAB CHEMISTRY METHOD 12/19/2024 3:03 PM [facility] LDL Calculated 64 0 - 100 mg/dL LAB CHEMISTRY METHOD 12/19/2024 3:03 PM [facility] VLDL Cholesterol Vignesh 27.6 mg/dL LAB CHEMISTRY METHOD 12/19/2024 3:03 PM [facility] Non HDL Chol. (LDL+VLDL) 92 <145 mg/dL LAB CHEMISTRY METHOD 12/19/2024 3:03 PM [facility] Chol/HDL Ratio 2.3 0.0 - 4.4 LAB CHEMISTRY METHOD 12/19/2024 3:03 PM [facility] Blood Venous blood specimen / Unknown Venipuncture / Unknown 12/19/2024 11:48 AM EST 12/19/2024 11:48 AM EST Cullen Gibson MD LAB BLOOD ORDERABLES Final Resul t [facility] [address] [place] [address], * (ABNORMAL) Comprehensive metabolic panel (12/19/2024 11:48 AM EST) Sodium 139 133 - 145 mmol/L LAB CHEMISTRY METHOD 12/19/2024 3:03 PM [facility] Potassium 4.4 3.5 - 5.5 mmol/L LAB CHEMISTRY METHOD 12/19/2024 3:03 PM [facility] Chloride 107 96 - 110 mmol/L LAB CHEMISTRY METHOD 12/19/2024 3:03 PM [facility] CO2 28 21 - 32 mmol/L LAB CHEMISTRY METHOD 12/19/2024 3:03 PM [facility] Anion Gap 4 3 - 11 LAB CHEMISTRY METHOD 12/19/2024 3:03 PM [facility] Glucose 119(H) 70 - 100 mg/dL LAB CHEMISTRY METHOD 12/19/2024 3:03 PM [facility] BUN 16 5 - 25 mg/dL LAB CHEMISTRY METHOD 12/19/2024 3:03 PM [facility] Creatinine 0.92 0.50 - 1.10 mg/dL LAB CHEMISTRY METHOD 12/19/2024 3:03 PM [facility] eGFR 65 >=60 mL/min/1. 73m2 LAB CHEMISTRY METHOD 12/19/2024 3:03 PM [facility] Comment:Calculation based on the Chronic Kidney Disease Epidemiology Collaboration (CKD-EPI) equation refit without adjustment for race. BUN/Creatinine Ratio 17.4 LAB CHEMISTRY METHOD 12/19/2024 3:03 PM [facility] Calcium 10.6(H) 8.5 - 10.5 mg/dL LAB CHEMISTRY METHOD 12/19/2024 3:03 PM [facility] AST (SGOT) 16 10 - 42 unit/L LAB CHEMISTRY METHOD 12/19/2024 3:03 PM [facility] ALT (SGPT) 9(L) 10 - 60 unit/L LAB CHEMISTRY METHOD 12/19/2024 3:03 PM [facility] Alkaline Phosphatase 110 42 - 121 unit/L LAB CHEMISTRY METHOD 12/19/2024 3:03 PM [facility] Total Protein 6.9 6.0 - 8.0 g/dL LAB CHEMISTRY METHOD 12/19/2024 3:03 PM [facility] Albumin 4.1 3.2 - 5.0 g/dL LAB CHEMISTRY METHOD 12/19/2024 3:03 PM [facility] Total Bilirubin 0.5 0.0 - 1.4 mg/dL LAB CHEMISTRY METHOD 12/19/2024 3:03 PM [facility] Blood Venous blood specimen / Unknown Venipuncture / Unknown 12/19/2024 11:48 AM EST 12/19/2024 11:48 AM EST us Cullen Gibson MD LAB BLOOD ORDERABLES Final Resul t [facility] [address] [place] [address], * EMILY DEXA AXIAL SKELETON (06/28/2024 11:28 AM EDT) Anatomical Region Laterality Modality Mammography 06/28/2024 10:5 0 AM EDT Narrative 06/28/2024 11:28 AM EDT [facility] Diagnostic Imaging Department [address] [place] [address] Patient: SINDY LING Rafaela/Age/Sex: 1950 74 - F Unit#: [id number] [facility] Mnemonic/Ordering Site: MAMDEXAAX/SPMAM Ordering Physician: SNOW BLANTON MD Emily Dexa Axial Skeleton - 06/28/24 - 1119 Report Status:Signed HISTORY: The patient is a 74-year-old postmenopausal female with clinical concern for metabolic bone disease. FINDINGS: Dual energy x-ray absorptiometry of the lumbar spine and femurs is performed. The mean bone mineral density at L1-2 is 0.975 gm/cm2 which is 84% of that of young normals and 94% of that of age matched controls. This yields a T- score of -1.6 and a Z-score of -0.5 which is diagnostic of osteopenia. The mean bone mineral density of the femurs bilaterally is 0.836 gm/cm2 which is 83% of that of young normals and 98% of that of age matched controls. This yields a T-score of -1.4 and a Z-score of -0.1 which is diagnostic of osteopenia. The T-score of the right femoral neck is -2.4 and that of the left femoral neck is -1.9 which is diagnostic of osteopenia. IMPRESSION: 1. Osteopenia. 2. FRAX analysis yields a 10-year probability of major osteoporotic fracture of 14.6% and a 10-year probability of hip fracture of 4.2%. Code 53778 Dictating Physician: TANESHA MUKHERJEE MD Electronically Signed by: TANESHA MUKHERJEE MD Dic Date/Time: 06/28/241126 Sign date/Time: 06/28/241127 Procedure Note Tanesha Mukherjee MD - 09/06/2024 [facility] Diagnostic Imaging Department [address] [place] [address] Patient: SHARRON LINGSABAS GrahamO.B./Age/Sex: 1950 74 - F Unit#: [id number] Location/Status: SPDIMAM/REG CLI Mnemonic/Ordering Site: MAMDEXAAX/SPMAM Ordering Physician: SNOW BLANTON MD Emily Dexa Axial Skeleton - 06/28/240 Report Status:Signed HISTORY: The patient is a 74-year-old postmenopausal female withclinical concern for metabolic bone disease. FINDINGS: Dual energy x-ray absorptiometry of the lumbar spine and femursis performed. The mean bone mineral density at L1-2 is 0.975 gm/cm2 which is84% of that of young normals and 94% of that of age matched controls. This yieldsa T- score of -1.6 and a Z-score of -0.5 which is diagnostic of osteopenia. The mean bone mineral density of the femurs bilaterally is 0.836 gm/qq5rlckf is 83% of that of young normals and 98% of that of age matched controls.This yields a T-score of -1.4 and a Z-score of -0.1 which is diagnostic of osteopenia. The T-score of the right femoral neck is -2.4 and that of theleft femoral neck is -1.9 which is diagnostic of osteopenia. IMPRESSION: 1. Osteopenia. 2. FRAX analysis yields a 10-year probability of major osteoporoticfracture of 14.6% and a 10-year probability of hip fracture of 4.2%. Code 54320 Dictating Physician: TANESHA MUKHERJEE MD Electronically Signed by: TANESHA MUKHERJEE MD Dic Date/Time: 06/28/24 1127 Sign date/Time: 06/28/24 1128 Snow Blanton MD IMG BI PROCEDURES Final Result * Colonoscopy (06/13/2024) Colonoscopy abnormal, abstracted Anatomical Region Laterality Modality Other Historical Provider HEALTH MAINTENANCE Final Result * Pap Smear (12/18/2021) Pap smear no interpretation , abstracted Historical Provider HEALTH MAINTENANCE Final Result from Last 3 Months or Most Recently Relevant to Health Maintenance Insurance [employer] MEDICARE Care Teams Cryptologic Technician Technical Relationship Specialty Start Date End Date Cullen Gibson MD 175 [facility] [address] [place] [address] PCP - General Internal Medicine 02/21/19
== END 2025-05-30 11:02 | disposition home or self-care (01) ==
LOC: HO.HSMS 10:31
PROVIDERS: PCP Internal Medicine; Visit Provider Psychiatry & Neurology Neurology
DX: G20.A1 Parkinson's disease without dyskinesia, without mention of fluctuations (principal); R26.9 Unspecified abnormalities of gait and mobility; M54.9 Dorsalgia, unspecified
CPT/HCPCS: 99214